=== PATIENT | female | born 1995 | race Caucasian/White ===

== ENCOUNTER 2017-06-21 18:58 | Emergency (ER) | payer BC, OTHER ==
[~2017-06-21] VITALS: Ht 160 cm; Wt 99.8 kg
[~2017-06-21 18:58] MED LIST: DIPH25CA44 PO; METF500T4 PO
[2017-06-21 19:19] VITALS: BP 106/72
--- NOTE | 2017-06-21 19:41 | ED.ADGEN ---
Past Medical History Past Medical History: Fibromyalgia, Other Additional Past Medical Histor: PCOS, pre diabetic, seasonal allergies Past Surgical History: Other Additional Past Surgical Histo: shoulder Additional Information: 0.25 PPD Alcohol Use: None Drug Use: None Adult General Chief Complaint Chief Complaint: SORE THROAT HPI HPI Patient is a 22 year old woman, history of PCOS, fibromyalgia, "prediabetes", strep throat, who presents the emergency department with a complaint of sore throat, progressively worsening over the past several days. Patient states she was seen in urgent care center 2 days ago, that time she was diagnosed with a viral illness, had negative strep swab, was told to take any fluid or medications. Patient at bedtime been using ibuprofen without relief, states that she feels as though her throat is scratchy year and more swollen. States she also has noted "bumps", on her neck, that are tender and sore. Denies significant coughing, wheezing, chest pain, abdominal pain, vomiting or diarrhea , body aches, fevers or chills. Complaining of generalized malaise. Patient states that she has had multiple episodes of strep throat previously, but is not her primary care provider with whom to follow. Review of Systems Review of Systems Constitutional: Denies fever or chills. [] Eyes: Denies change in visual acuity. [] HENT: Denies nasal congestion or sore throat. [] Respiratory: Denies cough or shortness of breath. [] Cardiovascular: Denies chest pain or edema. [] GI: Denies abdominal pain, nausea, vomiting, bloody stools or diarrhea. [] : Denies dysuria. [] Musculoskeletal: Denies back pain or joint pain. [] Integument: Denies rash. [] Neurologic: Denies headache, focal weakness or sensory changes. [] Endocrine: Denies polyuria or polydipsia. [] Lymphatic: Denies swollen glands. [] Psychiatric: Denies depression or anxiety. [] Current Medications Current Medications Current Medications Medications (Trade) Dose Ordered Sig/Taya Start Time Stop Time Status Last Admin Dose Admin Dexamethasone Sodium Phosphate (Decadron) 6 mg 1X ONCE 06/21/17 20:00 06/21/17 20:01 DC 06/21/17 19:52 6 MG Naproxen (Naprosyn) 500 mg 1X ONCE 06/21/17 20:15 06/21/17 20:16 12/2/17 19:52 500 MG Penicillin G Benzathine (Bicillin L-A) 1,200,000 unit 1X ONCE 06/21/17 20:15 06/21/17 20:16 06/21/17 19:52 1,200,000 UNIT Allergies Allergies Allergies Coded Allergies Type Severity Reaction Last Updated Verified No Known Drug Allergies 02/14/15 No Physical Exam Physical Exam Constitutional: Well developed, well nourished, no acute distress, non-toxic appearance. [] HENT: Normocephalic, atraumatic, bilateral external ears normal, oropharynx moist, patient with bilateral tonsillar swelling and exudates, no evidence of abscess formation, no evidence of airway compromise, nose normal. [] Eyes: PERRLA, EOMI, conjunctiva normal, no discharge. [] Neck: Normal range of motion, no tenderness, supple, no stridor. [] Cardiovascular:Heart rate regular rhythm, no murmur, S1, S2, no rubs or gallops. [] Lungs & Thorax: Bilateral breath sounds clear to auscultation , no wheezing, rhonchi, rales. No chest wall crepitus or tenderness.[] Abdomen: Bowel sounds normal, soft, no tenderness, no masses, no pulsatile masses. [] Skin: Warm, dry, no erythema, no rash. [] Back: No tenderness, no CVA tenderness. [] Extremities: No tenderness, no cyanosis, no clubbing, ROM intact, no edema. Negative Homans sign[] Neurologic: Alert and oriented X 3, normal motor function, normal sensory function, no focal deficits noted. [] Psychologic: Affect normal, judgement normal, mood normal. [] Current Patient Data Vital Signs Vital Signs Date Time Temp Pulse Resp B/P (MAP) Pulse Ox O2 Delivery O2 Flow Rate FiO2 06/21/17 19:19 98.7 105 20 106/72 (83) 98 Room Air 98.7 EKG EKG Not indicated.[] Radiology/Procedures Radiology/Procedures Not indicated.[] Course & Med Decision Making Course & Med Decision Making Pertinent Labs and Imaging studies reviewed. (See chart for details) Patient examination and history are concerning for recurrent strep infection, although strep swab is negative, based on her symptoms and history, we'll treat with penicillin in which the patient tolerated without issue previously, additionally will treat with Decadron, 6 mg of the liquid formation orally, and naproxen. Patient voices a dispatcher, was given a work note for 1-2 days, and clear and detailed return instructions. Patient tolerated medication without issue, no difficulties with swallowing or breathing as stated, his lower airspace disease or other concerning findings, she was given instructions to continue to push fluids, use [id number] medications as ibuprofen and acetaminophen, and return to the ED if any new or concerning symptoms develop. Additionally, was given clinic list and instructed importance of establishing primary care provider. Patient discharged home in stable condition after receiving her medications without issue with plan, and precautions as above. Dragon Disclaimer Dragon Disclaimer This electronic medical record was generated, in whole or in part, using a voice recognition dictation system. Departure Impression: Primary Impression: Pharyngitis Disposition: 01 HOME, SELF-CARE Condition: IMPROVED MIRTHA GRAJEDA DO Jun 21, 2017 19:41
[2017-06-21] MEDS ORDERED: DEXAMETHASONE SOD PHOS 4 MG/ML VIAL PO ONE (20:00)
[2017-06-21] MEDS ORDERED: PENICILLIN G BENZATHINE LA 1,200,000 UNIT/2 ML DISP.SYRIN. IM ONE (20:15)
[2017-06-21] MEDS ORDERED: NAPROXEN 500 MG TABLET PO ONE (20:15)
[2017-06-21] MEDS ORDERED: DEXAMETHASONE SOD PHOS 4 MG/ML VIAL IV ONE (20:15)
[2017-06-22 08:43] LABS: NEGATIVE OBC STREP NEG; POSITIVE OBC STREP POS
== END 2017-06-21 20:16 | disposition home or self-care (01) ==
LOC: ER 18:58
DX: J02.9 Acute pharyngitis, unspecified (principal); R53.81 Other malaise; M79.7 Fibromyalgia; E28.2 Polycystic ovarian syndrome; R73.03 Prediabetes; F17.200 Nicotine dependence, unspecified, uncomplicated
CPT/HCPCS: 87070; 87880; 96372; 99283; J0561; J1100; 99284-25